=== PATIENT | female | born 1940 | race Caucasian/White ===

== ENCOUNTER 2020-03-19 11:10 | Outpatient (CLI) | payer MEDICARE ==
--- NOTE | 2020-03-19 13:36 | MMO ---
Bilateral MAMMO Bilat Screen [facility]. CLINICAL HISTORY: Patient is 79 years old and is seen for screening. The patient has the following family history of breast cancer: sister, at age 65. The patient has no personal history of cancer. The patient has a history of bilateral Implants in 1974 and bilateral Explantation in 1984. VIEWS: The views performed were: bilateral craniocaudal with tomosynthesis and bilateral mediolateral oblique with tomosynthesis. FILMS COMPARED: The present examination has been compared to prior imaging studies performed at [facility] on 01/19/2013, 01/24/2014, 11/14/2015 and 04/26/2018. This study has been interpreted with the assistance of computer-aided detection. MAMMOGRAM FINDINGS: There are scattered fibroglandular densities. There are no suspicious masses, suspicious calcifications, or new areas of architectural distortion. IMPRESSION: THERE IS NO MAMMOGRAPHIC EVIDENCE OF MALIGNANCY. A ROUTINE FOLLOW-UP MAMMOGRAM IN 1 YEAR IS RECOMMENDED. THE RESULTS OF THIS EXAM WERE SENT TO THE PATIENT. ACR BI-RADS Category 1 - Negative MAMMOGRAPHY NOTE: 1. A negative mammogram report should not delay a biopsy if a dominant of clinically suspicious mass is present. 2. Approximately 10% to 15% of breast cancers are not detected by mammography. 3. Adenosis and dense breasts may obscure an underlying neoplasm. Reported by: IZABELA MORALES MD Electonically Signed: [id number]
== END 2020-03-19 11:11 | disposition home or self-care (01) ==
LOC: BICMAMMO 11:10
DX: Z12.31 Encounter for screening mammogram for malignant neoplasm of breast (principal); Z80.3 Family history of malignant neoplasm of breast; Z98.82 Breast implant status
CPT/HCPCS: 77063; 77067

== ENCOUNTER 2021-07-15 13:18 | Outpatient (CLI) | payer MEDICARE | END 2021-07-15 13:19 | disposition home or self-care (01) | LOC: BICMAMMO 13:18 | PROVIDERS: ATTEND Family Medicine | DX: Z12.31 Encounter for screening mammogram for malignant neoplasm of breast (principal); Z80.3 Family history of malignant neoplasm of breast; Z98.82 Breast implant status; Z98.890 Other specified postprocedural states | CPT/HCPCS: 77063; 77067 ==